=== PATIENT | female | born 1990 | race Caucasian/White ===

== ENCOUNTER 2016-06-28 16:55 | Emergency (ER) | payer SELFPAY ==
[2016-06-28 17:08] VITALS: BP 117/72; PULSE 89; TEMP 98.1; BMI 27.3
[2016-06-28] MEDS ORDERED: SILVER SULFADIAZINE 1% CREAM 20 GM TUBE TOP ONE (17:18)
[2016-06-28] MEDS ORDERED: OXYCODONE HCL 5 MG TABLET PO ONE (17:19)
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
[2016-06-28] MEDS ORDERED: GENTAMICIN 0.3% OPHTH SOLN 5 ML BOTTLE ONE (17:27)
[2016-06-28] MEDS ORDERED: GENTAMICIN 0.3% OPHTH SOLN 5 ML BOTTLE OD SCH ×2 (18:00)
== END 2016-06-28 17:38 | disposition home or self-care (01) ==
LOC: ED 16:55
DX: T20.16XA Burn of first degree of forehead and cheek, initial encounter (principal); T31.0 Burns involving less than 10% of body surface; X10.2XXA Contact with fats and cooking oils, initial encounter
CPT/HCPCS: 99282; J3490